=== PATIENT | female | born 1965 | race Caucasian/White ===

== ENCOUNTER 2019-03-09 19:00 | Emergency (ER) | payer OTHER ==
[~2019-03-09] VITALS: Ht 152.4 cm; Wt 84.5 kg
[2019-03-09 19:38] VITALS: Ht 152.4 cm; Wt 84.5 kg
[2019-03-09 22:06] LABS: BASOPHIL % 0.4 % (0-2); PLATELET COUNT 262 x10^3mcL (130-400); RED CELL DISTRIBUTION WIDTH 13.7 % (11.5-14.5)
[2019-03-09 22:07] LABS: microscopic required? YES; urine erythrocyte 1+ (NEGATIVE)
[2019-03-09 22:16] LABS: CALCIUM 8.6 mg/dL (8.5-10.1); CARBON DIOXIDE 27.5 mmol/L (21-32); CHLORIDE SERUM 106 mmol/L (98-107); CREATININE SERUM 0.7 mg/dL (0.6-1.0); GFR1 > 60 mL/min; GLUCOSE SERUM 98 mg/dL (74-106); POTASSIUM SERUM 3.8 mmol/L (3.5-5.1); SODIUM SERUM 143 mmol/L (136-145)
[2019-03-09 22:21] LABS: ALBUMIN 3.7 g/dL (3.4-5.0); ALKALINE PHOSPHATASE 93 U/L (46-116); ALT/SGPT 23 U/L (14-59); AST/SGOT 14 U/L (15-37); BILIRUBIN TOTAL 0.3 mg/dL (0.20-1.00); TOTAL PROTEIN, SERUM 7.9 g/dL (6.4-8.2)
[2019-03-09 23:31] VITALS: BP 108/78
== END 2019-03-09 23:31 | disposition home or self-care (01) ==
LOC: ED 19:00
PROVIDERS: Emergency Medicine
DX: N12 Tubulo-interstitial nephritis, not specified as acute or chronic (principal); J45.909 Unspecified asthma, uncomplicated; F41.9 Anxiety disorder, unspecified; Z90.710 Acquired absence of both cervix and uterus
CPT/HCPCS: J0696; J1885; J2405; J7030; J7060